=== PATIENT | female | born 1955 | race Caucasian/White ===

== ENCOUNTER → 2017-01-25 | Outpatient (CLI) | payer BC ==
[2017-01-25 09:53] LABS: BASO % 1 % (0-3); EOS # 0.1 x10^3/uL (0.0-0.7); EOS % 3 % (0-3); HEMATOCRIT 38.4 % (36.0-47.0); HEMOGLOBIN 12.9 g/dL (12.0-15.5); LYMPH # 1.3 x10^3/uL (1.0-4.8); LYMPH % 31 % (24-48); MEAN CORPUSCULAR HEMOGLOBIN 30 pg (25-35); MEAN CORPUSCULAR HGB CONC 34 g/dL (31-37); MEAN CORPUSCULAR VOLUME 90 fL (79-100); MONO # 0.4 x10^3/uL (0.0-1.1); MONO % 10 % (0-9); NEUT # 2.2 x10^3uL (1.8-7.7); NEUT % 55 % (31-73); PLATELET COUNT 276 x10^3/uL (140-400); RED BLOOD COUNT 4.28 x10^6/uL (3.50-5.40); RED CELL DISTRIBUTION WIDTH 13.2 % (11.5-14.5); WHITE BLOOD COUNT 4.1 x10^3/uL (4.0-11.0)
[2017-01-25 10:03] LABS: ALBUMIN 3.3 g/dL (3.4-5.0); CALCIUM 8.9 mg/dL (8.5-10.1); GFR 56.4; POTASSIUM 4.4 mmol/L (3.5-5.1); TOTAL BILIRUBIN 0.3 mg/dL (0.2-1.0); TOTAL PROTEIN 6.6 g/dL (6.4-8.2)
== END | disposition home or self-care (01) ==
LOC: LAB 09:29
PROVIDERS: ATTEND Physician Assistant
DX: R10.9 Unspecified abdominal pain (principal)
CPT/HCPCS: 36415; 80053; 85025; 85651

== ENCOUNTER → 2017-01-28 | Outpatient (CLI) | payer BC ==
--- NOTE | 2017-01-28 15:09 | RAD ---
Indication: Left flank pain for one week Technique: CT abdomen and pelvis without IV contrast with multiplanar reformats. Comparison: None Findings: Limited study due to lack of IV contrast. Heart is normal in size. No pericardial or pleural effusion. Clear lung bases. Noncontrast appearance of the liver, spleen, adrenal glands, pancreas and gallbladder are within normal limits. No nephrolithiasis or hydronephrosis. No inguinal, pelvic or retroperitoneal adenopathy. Post surgical changes seen in the stomach. Small sliding hiatal hernia. No bowel obstruction. Sigmoid and descending colon diverticulosis. Uterus is present and is anteverted. No solid adnexal lesions. Bladder is decompressed but show no radiopaque stones. No free pelvic fluid. No suspicious bony lesions. Grade 1 anterolisthesis of L5 over S1 noted with bilateral pars defects of L5. Degenerative disc disease noted at L4-L5 and L5-S1. Impression: Limited study due to lack of IV contrast. 1. No nephrolithiasis or hydronephrosis. No imaging evidence of obstructive uropathy. 2. Sigmoid and descending colon diverticulosis without diverticulitis. PQRS Compliance Statement: One or more of the following individualized dose reduction techniques were utilized for this examination: 1. Automated exposure control 2. Adjustment of the mA and/or kV according to patient size 3. Use of iterative reconstruction technique
== END | disposition home or self-care (01) ==
LOC: CT 13:42
PROVIDERS: ATTEND Physician Assistant
DX: K57.30 Diverticulosis of large intestine without perforation or abscess without bleeding (principal); M51.37 Other intervertebral disc degeneration, lumbosacral region
CPT/HCPCS: 74176

== ENCOUNTER → 2019-12-06 | Outpatient (CLI) | payer BC ==
--- NOTE | 2019-12-06 10:53 | RAD ---
BILATERAL SCREENING MAMMOGRAM History: Routine screening. Comparison: 06/21/2015, 04/11/2011, 07/15/2007. Technique: Routine bilateral digital mammogram views were obtained. Findings: Breast Tissue Density B : There are scattered areas of fibroglandular density. There are no dominant masses, suspicious microcalcifications, or architectural distortion. At the posterior left upper-outer breast in the axillary region, there is a 0.5 cm diameter mass which is new compared to previous exams. This may represent a lymph node it is located 13.5 cm from the nipple on the MLO projection. IMPRESSION: Ultrasound examination of the left upper outer posterior located mass recommended. Spot compression or other mammographic imaging may be needed. BI-RADS Category 0: Incomplete: Need additional imaging evaluation. The images were reviewed with computer aided detection. Patient information is entered into the reminder system with a target due date for the next screening mammogram. Mammography is the most sensitive method for finding small breast cancers, but it does not detect them all and is not a substitute for careful clinical examination. A negative mammogram does not negate a clinically suspicious finding and should not result in delay in biopsying a clinically suspicious abnormality. "Our facility is accredited by the [employer] Mammography Program." Electronically signed by: Eric Flanagan MD (12/06/2019 10:50 AM) [facility]
== END ==
LOC: MAMMO 08:25
PROVIDERS: ATTEND Physician Assistant
DX: Z12.31 Encounter for screening mammogram for malignant neoplasm of breast (principal); N64.89 Other specified disorders of breast
CPT/HCPCS: 77067

== ENCOUNTER → 2019-12-10 | Outpatient (CLI) | payer BC ==
--- NOTE | 2019-12-13 12:31 | RAD ---
EXAM: Left breast and axillary sonogram. HISTORY: Left upper outer quadrant nodule on screening mammography. TECHNIQUE: Sonographic imaging of the left upper outer quadrant and axilla was performed. COMPARISON: Mammogram dated 12/06/2019. FINDINGS: There is a 6 x 6 x 4 mm benign-appearing lymph node with thickened cortex and fatty hilum within the posterior 2:30 position of the left breast 12 cm from the nipple, likely corresponding with the mammographic finding of concern. There is an additional left axillary lymph node measuring 2.9 cm which demonstrates benign morphology. There is no suspicious sonographic finding. IMPRESSION: 1. 6 mm benign left axillary tail lymph node, corresponding with the mammographic nodule of concern. 2. BI-RADS Category 2: Benign finding(s). Annual mammography is recommended.
== END ==
LOC: US 13:39
PROVIDERS: ATTEND Physician Assistant
DX: R92.8 Other abnormal and inconclusive findings on diagnostic imaging of breast (principal); N63.21 Unspecified lump in the left breast, upper outer quadrant
CPT/HCPCS: 76641

== ENCOUNTER → 2021-06-22 | Outpatient (CLI) | payer MEDICARE ==
--- NOTE | 2021-06-22 17:00 | RAD ---
EXAM: Right foot, 2 views. HISTORY: Lateral pain. COMPARISON: None. FINDINGS: 2 views of the right foot are obtained. The exam is limited due to the absence of a lateral view. There is no acute fracture, dislocation or subluxation. There is no foreign body. IMPRESSION: No acute osseous finding. Limited exam due to the absence of a lateral view. Electronically signed by: Laura Parada MD (06/22/2021 4:57 PM) [id number]
== END ==
LOC: RAD 11:42
PROVIDERS: ATTEND Physician Assistant
DX: M79.671 Pain in right foot (principal)
CPT/HCPCS: 73630